=== PATIENT | female | born 1985 | race African-American/Black ===

== ENCOUNTER 2017-10-26 06:23 | Inpatient (IN) | payer SELFPAY ==
[~2017-10-26] VITALS: Ht 154.9 cm; Wt 68.0 kg
[2017-10-26] MEDS ORDERED: LIDOCAINE HCL 1% 20ML VIAL (Pyxis) INJ INFIL SCH (07:00)
[2017-10-26] MEDS ORDERED: OXYTOCIN 20 UNITS in LACTATED RINGERS 1,000 ML IV SCH (07:00)
[2017-10-26] MEDS ORDERED: DEXT 5%/LR + PITOCIN 20UNITS/L 1,000 ML IV ONE (07:12)
[2017-10-26] MEDS ORDERED: IBUPROFEN 800MG TABLET PO NR (07:15)
[2017-10-26] MEDS: DEXT 5%/LR + PITOCIN 20UNITS/L 1,000 ML IV SCH ×2 (07:50→10:45)
[2017-10-26 08:37] LABS: BASOPHILS % 0.1 % (0.0-2.0); HEMATOCRIT. 37.1 % (36.0-48.0); HEMOGLOBIN. 12.5 g/dL (12.0-16.0); LYMPHOCYTES % 11.8 % (20.0-50.0); MEAN CORPUSCULAR HEMOGLOBIN 31.4 pg (28.0-32.0); MEAN CORPUSCULAR VOLUME 93.5 fL (81.0-99.0); MEAN PLATELET VOLUME 12.6 fl (7.4-10.4); MONOCYTES % 3.5 % (2.0-8.0); NEUTROPHILS % 84.6 % (40.0-76.0); PLATELET 105 x1000/uL (130-400); RED BLOOD CELL COUNT 3.97 mill/uL (4.2-5.4); RED CELL DISTRIBUTION WIDTH 12.9 % (11.6-14.6)
[2017-10-26 08:46] LABS: CHLORIDE 104 mEq/L (98-107)
[2017-10-26 09:37] LABS: D-DIMER 10.28 mg/L FEU (<0.50); PARTIAL THROMBOPLASTIN TIME 31.8 sec (23.4-31.0)
[2017-10-26] MEDS ORDERED: MAGNESIUM 20 G PREMIX (L & D) 500 ML IV SCH (09:50)
[2017-10-26] MEDS ORDERED: DEXT 5%/LR + PITOCIN 20UNITS/L 1,000 ML IV SCH (11:38)
[2017-10-26] MEDS ORDERED: RHO(D) IMMUNE GLOBULIN 300 MCG/SYR IM PRN (11:45)
[2017-10-26] MEDS ORDERED: IBUPROFEN 800MG TABLET PO PRN (11:45)
[2017-10-26] MEDS ORDERED: IBUPROFEN 400MG TABLET PO PRN (11:45)
[2017-10-26 11:46] LABS: RUBELLA IGG 212.3 IU/mL (4.99-10)
[2017-10-26 11:47] LABS: HEPATITIS B SURFACE ANTIGEN NEGATIVE
[2017-10-26 11:55] LABS: CLARITY URINE CLEAR (CLEAR); COLOR URINE YELLOW (YELLOW); KETONES URINE 3+ (NEGATIVE); LEUKOCYTE ESTERASE URINE NEGATIVE (NEGATIVE); NITRITE URINE NEGATIVE (NEGATIVE); OCCULT BLOOD URINE NEGATIVE (NEGATIVE); PROTEIN URINE NEGATIVE (NEGATIVE); SPECIFIC GRAVITY URINE 1.011 (1.005-1.030); UROBILINOGEN URINE 0.2 E.U./dL (0.2-1.0)
[2017-10-26] MEDS: MAGNESIUM 20 G PREMIX (L & D) 500 ML IV SCH ×2 (12:04→20:17)
[2017-10-26 13:00] VITALS: BP 147/97
[2017-10-26 13:45] LABS: *AMPHETAMINES SCREEN URINE NEGATIVE (NEGATIVE); *BARBITURATES SCREEN URINE NEGATIVE (NEGATIVE); *BENZODIAZEPINES SCREEN URINE NEGATIVE (NEGATIVE); *COCAINE SCREEN URINE NEGATIVE (NEGATIVE)
[2017-10-26 13:46] LABS: METHADONE URINE SCREEN NEGATIVE (NEGATIVE); OPIATES URINE SCREEN NEGATIVE (NEGATIVE)
[2017-10-26 14:14] LABS: PHENCYCLIDINE URINE SCREEN NEGATIVE (NEGATIVE)
[2017-10-26 14:18] LABS: CANNABINOID URINE SCREEN PRESUMTIVE POSITIVE (NEGATIVE)
[2017-10-26 14:30] VITALS: BP 149/92
[2017-10-26 17:15] VITALS: BP 146/92
[2017-10-26 21:05] VITALS: BP 135/91
[2017-10-26] MEDS: LABETALOL HCL 100MG TABLET PO SCH (21:05)
[2017-10-26 22:00] VITALS: BP 132/92
[2017-10-27 05:30] VITALS: BP 140/92
[2017-10-27 06:16] LABS: BASOPHILS % 0.2 % (0.0-2.0); EOSINOPHILS % 0.5 % (0.0-5.0); HEMATOCRIT. 31.6 % (36.0-48.0); HEMOGLOBIN. 10.9 g/dL (12.0-16.0); LYMPHOCYTES % 25.2 % (20.0-50.0); MEAN CORPUSCULAR HEMOGLOBIN 31.9 pg (28.0-32.0); MEAN CORPUSCULAR VOLUME 92.7 fL (81.0-99.0); MEAN PLATELET VOLUME 10.7 fl (7.4-10.4); MONOCYTES % 6.1 % (2.0-8.0); PLATELET 72 x1000/uL (130-400); RED BLOOD CELL COUNT 3.41 mill/uL (4.2-5.4); RED CELL DISTRIBUTION WIDTH 12.8 % (11.6-14.6)
[2017-10-27 07:51] VITALS: BP 142/92
[2017-10-27] MEDS: PRENATAL VIT/FE FUMARATE/FA TABLET PO SCH (08:38)
[2017-10-27] MEDS: LABETALOL HCL 100MG TABLET PO SCH ×2 (08:39→21:10)
[2017-10-27 12:19] VITALS: BP 145/73
[2017-10-27 16:14] VITALS: BP_SYST 136; BP_SYST 142; BP_DIAS 62; BP_DIAS 92
[2017-10-27 21:10] VITALS: BP 137/89
[2017-10-28 06:00] VITALS: BP 117/81
[2017-10-28 07:40] VITALS: BP 132/80
[2017-10-28] MEDS: PRENATAL VIT/FE FUMARATE/FA TABLET PO SCH (08:46)
[2017-10-28] MEDS: LABETALOL HCL 100MG TABLET PO SCH (08:46)
[2017-10-28 15:46] VITALS: BP 138/94
== END 2017-10-28 17:30 | disposition home or self-care (01) | DRG 561 ==
LOC: OBSVTOIN 06:23 → L&D 06:23 → 7EST PP/OB 13:15
PROVIDERS: ADMIT Obstetrics & Gynecology; ATTEND Obstetrics & Gynecology
DX: Z39.0 Encounter for care and examination of mother immediately after delivery (principal); S31.41XA Laceration without foreign body of vagina and vulva, initial encounter; X58.XXXA Exposure to other specified factors, initial encounter; Y93.89 Activity, other specified; Y92.89 Other specified places as the place of occurrence of the external cause; Y99.8 Other external cause status
CPT/HCPCS: 36415; 80053; 80305; 80349; 81003; 83735; 84550; 85025; 85379; 85384; 85610; 85730; 86592; 86703; 86762; 86850; 86900; 87340; J2590; J3475; J3490; J7120; A4315